=== PATIENT | male | born 1975 | race Hispanic/Latino ===

== ENCOUNTER 2020-01-03 17:06 | Emergency (ER) | payer OTHER ==
--- NOTE | 2020-01-03 22:25 | EDPHYS ---
Physician Documentation [facility] Name: Kit Whipple Age: 44 yrs Sex: Male : 1975 Arrival Date: 01/03/2020 Time: 17:24 Bed 28 Private MD: ED Physician Roldan Arecihga HPI: 01/02 22:28 This 44 yrs old Male presents to ER via Ambulatory with complaints of Back snw Pain, Leg Pain. 22:28 The patient presents with pain that is acute, with no known mechanism of injury. The snw symptoms are located in the low back. Onset: The symptoms/episode began/occurred gradually. Location: right buttock. Associated signs and symptoms: Pertinent positives: none Pertinent negatives: abdominal pain, dysuria, numbness. The problem was sustained from unknown cause. Modifying factors: The patient symptoms are alleviated by lying flat and standing. Severity of symptoms: At their worst the symptoms were moderate. The patient has experienced a previous episode, left sided. The patient has not recently seen a physician. 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 Historical: - Allergies: 17:55 No Known Allergies; em - PMHx: 17:55 Hyperlipidemia; Hypertension; Sleep Apnea; em - PSHx: 17:55 back surgery; left shoulder; em - Immunization history:: Adult Immunizations up to date. - Social history:: Smoking status: Patient denies any tobacco usage or history of. ROS: 22:25 Constitutional: Negative for fever, chills, and weight loss, Eyes: Negative for injury, snw pain, redness, and discharge, ENT: Negative for injury, pain, and discharge, Neck: Negative for injury, pain, and swelling, Cardiovascular: Negative for chest pain, palpitations, and edema, Respiratory: Negative for shortness of breath, cough, wheezing, and pleuritic chest pain, Abdomen/GI: Negative for abdominal pain, nausea, vomiting, diarrhea, and constipation, : Negative for injury, bleeding, discharge, and swelling, MS/Extremity: Negative for injury and deformity, Skin: Negative for injury, rash, and discoloration, Neuro: Negative for headache, weakness, numbness, tingling, and seizure, Psych: Negative for depression, anxiety, suicide ideation, homicidal ideation, and hallucinations. 22:25 Back: Positive for pain at rest, pain with movement, radiated pain, of the right buttock. Exam: 22:28 Constitutional: This is a well developed, well nourished patient who is awake, alert, snw and in no acute distress. Head/Face: Normocephalic, atraumatic. Eyes: Pupils equal round and reactive to light, extra-ocular motions intact. Lids and lashes normal. Conjunctiva and sclera are non-icteric and not injected. Cornea within normal limits. Periorbital areas with no swelling, redness, or edema. ENT: Nares patent. No nasal discharge, no septal abnormalities noted. Tympanic membranes are normal and external auditory canals are clear. Oropharynx with no redness, swelling, or masses, exudates, or evidence of obstruction, uvula midline. Mucous membranes moist. Neck: Trachea midline, no thyromegaly or masses palpated, and no cervical lymphadenopathy. Supple, full range of motion without nuchal rigidity, or vertebral point tenderness. No Meningismus. Chest/axilla: Normal chest wall appearance and motion. Nontender with no deformity. No lesions are appreciated. Cardiovascular: Regular rate and rhythm with a normal S1 and S2. No gallops, murmurs, or rubs. Normal PMI, no JVD. No pulse deficits. Respiratory: Lungs have equal breath sounds bilaterally, clear to auscultation and percussion. No rales, rhonchi or wheezes noted. No increased work of breathing, no retractions or nasal flaring. Abdomen/GI: Soft, non-tender, with normal bowel sounds. No distension or tympany. No guarding or rebound. No evidence of tenderness throughout. Back: No spinal tenderness. No costovertebral tenderness. Full range of motion. Skin: Warm, dry with normal turgor. Normal color with no rashes, no lesions, and no evidence of cellulitis. MS/ Extremity: Pulses equal, no cyanosis. Neurovascular intact. Full, normal range of motion. Neuro: Awake and alert, GCS 15, oriented to person, place, time, and situation. Cranial nerves II-XII grossly intact. Motor strength 5/5 in all extremities. Sensory grossly intact. Cerebellar exam normal. Normal gait. Psych: Awake, alert, with orientation to person, place and time. Behavior, mood, and affect are within normal limits. Vital Signs: 17:52 BP 147 / 95; Pulse 82; Resp 18; Temp 98.3; Pulse Ox 97% on R/A; Weight 127.01 kg; em Height 5 ft. 7 in. (170.18 cm); Pain 7/10; 20:30 BP 139 / 93; Pulse 77; Resp 16; Pulse Ox 99% on R/A; Pain 10/10; fu 21:30 BP 138 / 91; Pulse 74; Resp 18; Temp 98.2; Pulse Ox 97% on R/A; sg 22:15 BP 127 / 85; Pulse 73; Pulse Ox 97% on R/A; Pain 10/10; fu 17:52 Body Mass Index 43.85 (127.01 kg, 170.18 cm) em MDM: 22:23 Patient medically screened. snw 22:27 Data reviewed: vital signs, nurses notes. Data interpreted: Pulse oximetry: on room air snw is 97 %. Interpretation: normal. Counseling: I had a detailed discussion with the patient and/or guardian regarding: the historical points, exam findings, and any diagnostic results supporting the discharge/admit diagnosis, the need for outpatient follow up, to return to the emergency department if symptoms worsen or persist or if there are any questions or concerns that arise at home. Special discussion: I have referred the patient to see his PCP for further evaluation of high blood pressure. Based on the history and exam findings, there is no indication for further emergent testing or inpatient evaluation. I discussed with the patient/guardian the need to see the back specialist for further evaluation of the symptoms. I discussed with the patient/guardian the need to see the primary care provider for further evaluation of the symptoms. Administered Medications: 22:33 Drug: Pepcid 20 mg Route: PO; fu 22:41 Follow up: Response: Medication administered at discharge. fu 22:34 Drug: TORadol 30 mg Route: IM; Site: right ventrogluteal; fu 22:42 Follow up: Response: Medication administered at discharge. fu 22:34 Drug: Decadron 8 mg Route: PO; fu 22:42 Follow up: Response: Medication administered at discharge. fu Disposition: 01/03 05:59 Co-signature as Attending Physician, Roldan Arechiga MD. pkl Disposition: 01/03/20 22:24 Discharged to Home. Impression: Radiculopathy, lumbar region, Low back pain. - Condition is Stable. - Discharge Instructions: Back Pain, Adult, Lumbosacral Radiculopathy, Musculoskeletal Pain, Back Injury Prevention, [id number], Rehydration, Adult, Heat Therapy. - Prescriptions for Prednisone 20 mg Oral Tablet - take 2 tablet by ORAL route once daily for 5 days; 10 tablet. - Medication Reconciliation Form, Thank You Letter, Antibiotic Education, Prescription Opioid Use form. - Follow up: Emergency Department; When: As needed; Reason: Worsening of condition. Follow up: Private Physician; When: 2 - 3 days; Reason: Recheck today's complaints, Continuance of care, Re-evaluation by your physician. Signatures: Roldan Arechiga MD MD pkl Waters, Shelly, FNP-C PONY TRIMMER-Shaan White, Maikol Luna RN, RN RN fu Corrections: (The following items were deleted from the chart) 01/02 22:41 22:24 01/03/2020 22:24 Discharged to Home. Impression: Radiculopathy, lumbar region; fu Low back pain. Condition is Stable. Forms are Medication Reconciliation Form, Thank You Letter, Antibiotic Education, Prescription Opioid Use. Follow up: Emergency Department; When: As needed; Reason: Worsening of condition. Follow up: Private Physician; When: 2 - 3 days; Reason: Recheck today's complaints, Continuance of care, Re-evaluation by your physician. snw
--- NOTE | 2020-01-03 22:25 | ER ---
Nurse's Notes [facility] Name: Kit Whipple Age: 44 yrs Sex: Male : 1975 Arrival Date: 01/03/2020 Time: 17:24 Bed 28 Private MD: Diagnosis: Radiculopathy, lumbar region;Low back pain Presentation: 01/02 17:52 Chief complaint: Patient states: pain in the right buttock that radiates does into em right leg, has been there for about 2 weeks, hx of sciatica. Coronavirus screen: Client denies travel out of the [place] in the last 14 days. Ebola Screen: Patient negative for fever greater than or equal to 101.5 degrees Fahrenheit, and additional compatible Ebola Virus Disease symptoms Patient denies exposure to infectious person. Patient denies travel to an Ebola-affected area in the 21 days before illness onset. No symptoms or risks identified at this time. Initial Sepsis Screen: Does the patient meet any 2 criteria? No. Patient's initial sepsis screen is negative. Does the patient have a suspected source of infection? No. Patient's initial sepsis screen is negative. Risk Assessment: Do you want to hurt yourself or someone else? Patient reports no desire to harm self or others. Onset of symptoms was December 20, 2019. 17:52 Method Of Arrival: Ambulatory em 17:52 Acuity: MATI 4 em Historical: - Allergies: 17:55 No Known Allergies; em - PMHx: 17:55 Hyperlipidemia; Hypertension; Sleep Apnea; em - PSHx: 17:55 back surgery; left shoulder; em - Immunization history:: Adult Immunizations up to date. - Social history:: Smoking status: Patient denies any tobacco usage or history of. Screenin:45 Abuse screen: Denies threats or abuse. Nutritional screening: No deficits noted. fu Tuberculosis screening: No symptoms or risk factors identified. Fall Risk None identified. Assessment: 20:20 General: Appears uncomfortable, Behavior is calm, cooperative, appropriate for age. fu Pain: Complains of pain in right buttock Pain radiates to right leg Pain currently is 10 out of 10 on a pain scale. Quality of pain is described as sharp, Pain began 2 weeks ago, worst today Is intermittent. Neuro: Level of Consciousness is Oriented to Platform Consultant are Cardiovascular: Denies chest pain, nausea, vomiting. Respiratory: Airway is patent. GI: Patient currently denies abdominal pain, diarrhea, vomiting. EENT: No signs and/or symptoms were reported regarding the EENT system. Derm: No signs and/or symptoms reported regarding the dermatologic system. Musculoskeletal: Reports pain in right buttocks that radiates to right leg. 21:53 Reassessment: Patient appears in no apparent distress at this time. Patient and/or fu family updated on plan of care and expected duration. Pain level reassessed. Patient is alert, oriented x 3, equal unlabored respirations, skin warm/dry/pink. Vital Signs: 17:52 BP 147 / 95; Pulse 82; Resp 18; Temp 98.3; Pulse Ox 97% on R/A; Weight 127.01 kg; em Height 5 ft. 7 in. (170.18 cm); Pain 7/10; 20:30 BP 139 / 93; Pulse 77; Resp 16; Pulse Ox 99% on R/A; Pain 10/10; fu 21:30 BP 138 / 91; Pulse 74; Resp 18; Temp 98.2; Pulse Ox 97% on R/A; sg 22:15 BP 127 / 85; Pulse 73; Pulse Ox 97% on R/A; Pain 10/10; fu 17:52 Body Mass Index 43.85 (127.01 kg, 170.18 cm) em ED Course: 17:24 Patient arrived in ED. mr 17:54 Triage completed. em 17:55 Arm band placed on. em 20:27 Maikol Garcia, RN is Primary Nurse. fu 20:45 Patient has correct armband on for positive identification. Bed in low position. Call fu light in reach. 21:31 Diana Mc FNP-C is PHCP. snw 21:31 Roldan Arechiga MD is Attending Physician. snw 22:39 No provider procedures requiring assistance completed. Patient did not have IV access fu during this emergency room visit. Administered Medications: 22:33 Drug: Pepcid 20 mg Route: PO; fu 22:41 Follow up: Response: Medication administered at discharge. fu 22:34 Drug: TORadol 30 mg Route: IM; Site: right ventrogluteal; fu 22:42 Follow up: Response: Medication administered at discharge. fu 22:34 Drug: Decadron 8 mg Route: PO; fu 22:42 Follow up: Response: Medication administered at discharge. fu Outcome: 22:24 Discharge ordered by . snw 22:40 Discharged to home ambulatory. fu 22:40 Condition: good 22:40 Discharge instructions given to patient, Instructed on discharge instructions, Demonstrated understanding of instructions, medications, Prescriptions given X 1. 22:41 Patient left the ED. fu Signatures: Azam Matthews RN RN Diana Hand, ANDROID FRAMEWORK DEVELOPER-C ANDROID FRAMEWORK DEVELOPER-Csnw NiranjanMaggie Shaan Zapien RN RN em Umadhay, Felix, RN RN fu Corrections: (The following items were deleted from the chart) 22:23 21:30 BP 138 / 91; Pulse 74bpm; Resp 18bpm; Pulse Ox 97% RA; Temp 89.2F; fu sg
[2020-01-03] MEDS ORDERED: dexAMETHasone 4 MG TAB ONE (22:39)
[2020-01-03] MEDS ORDERED: KETOROLAC 30 MG/ML INJ ONE (22:39)
[2020-01-03] MEDS ORDERED: FAMOTIDINE 20 MG TAB ONE (22:40)
[2020-01-04 01:24] VITALS: BP 127/85; O2SAT 97
[2020-01-04 13:24] VITALS: TEMP 98.2
== END 2020-01-03 22:41 | disposition home or self-care (01) ==
LOC: ER 17:06
DX: M54.16 Radiculopathy, lumbar region (principal); I10 Essential (primary) hypertension
CPT/HCPCS: 96372; 99283; J8540

== ENCOUNTER 2022-07-02 08:51 | Emergency (ER) | payer OTHER ==
[2022-07-02] MEDS ORDERED: KETOROLAC 30 MG/ML INJ ONE (09:10)
--- NOTE | 2022-07-02 10:57 | RAD REPORT ---
EXAM DESCRIPTION: RAD - Knee Left 3 View - 07/02/2022 9:48 am CLINICAL HISTORY: Pain;Swelling COMPARISON: No comparisons TECHNIQUE: Left knee, 3 views. FINDINGS: No fracture, dislocation or periosteal reaction.A small joint effusion seen. No joint spac e narrowing. No soft tissue abnormality. Spurring along the superior patellar surface related to quad riceps enthesopathy. Clinical concerns for internal derangement or occult bony injury could be further assessed with MR im aging. IMPRESSION: No acute osseous abnormality. Small joint effusion.
--- NOTE | 2022-07-02 11:00 | ER ---
Nurse's Notes [facility] Name: Kit Whipple Age: 46 yrs Sex: Male : 1975 Arrival Date: 07/02/2022 Time: 08:54 Bed 17 [facility] MD: Gonzalo Antunez Diagnosis: Other bursitis of knee, left knee Presentation: 07/02 08:57 Chief complaint: Left knee pain and swelling x 1 week. Denies injury. Not able to bear hb weight today. Coronavirus screen: At this time, the client does not indicate any symptoms associated with coronavirus-19. Ebola Screen: No symptoms or risks identified at this time. Risk Assessment: Do you want to hurt yourself or someone else? Patient reports no desire to harm self or others. Onset of symptoms was June 25, 2022. 08:57 Method Of Arrival: Wheelchair hb 08:59 Initial Sepsis Screen: Does the patient meet any 2 criteria? No. Patient's initial hb sepsis screen is negative. Does the patient have a suspected source of infection? No. Patient's initial sepsis screen is negative. 08:59 Acuity: MATI 4 hb Triage Assessment: 08:58 General: Appears in no apparent distress. Behavior is calm, cooperative. Pain: Pain hb currently is 10 out of 10 on a pain scale. Neuro: Level of Consciousness is awake, alert, obeys commands, Oriented to person, place, time, situation. Cardiovascular: Patient's skin is warm and dry. Respiratory: Respiratory effort is even, unlabored, Respiratory pattern is regular, symmetrical. Musculoskeletal: Reports severe left knee pain. Historical: - Allergies: 08:58 No Known Allergies; hb - PMHx: 08:58 Hyperlipidemia; Hypertension; Sleep Apnea; hb - Immunization history:: Adult Immunizations up to date. - Social history:: Smoking status: Patient denies any tobacco usage or history of. Screenin:00 [facility] ED Fall Risk Assessment (Adult) History of falling in the last 3 months, kc6 including since admission No falls in past 3 months (0 pts) Confusion or Disorientation No (0 pts) Intoxicated or Sedated No (0 pts) Impaired Gait No (0 pts) Mobility Assist Device Used No (0 pt) Altered Elimination No (0 pt) Score/Fall Risk Level 0 - 2 = Low Risk Oriented to surroundings, Maintained a safe environment, Educated pt \T\ family on fall prevention, incl call for assistance when getting out of bed, Assessed \T\ reinforced patient's understanding of fall precautions, Hourly rounding (assess needs \T\ fall precautionary measures) done. Abuse screen: Denies threats or abuse. Denies injuries from another. Nutritional screening: No deficits noted. Tuberculosis screening: No symptoms or risk factors identified. Assessment: 09:00 General: Appears in no apparent distress. comfortable, Behavior is calm, cooperative, kc6 appropriate for age. Pain: Complains of pain in left knee Pain does not radiate. Pain currently is 10 out of 10 on a pain scale. Quality of pain is described as aching, dull, Is continuous, Alleviated by rest, Aggravated by weight bearing, Noted to be resistant to movement, Also complains of no other associated symptoms. Neuro: Level of Consciousness is awake, alert, obeys commands, Oriented to person, place, time, situation, Appropriate for age. Cardiovascular: Capillary refill < 3 seconds. Respiratory: Airway is patent Trachea midline Respiratory effort is even, unlabored, Respiratory pattern is regular, symmetrical. GI: No signs and/or symptoms were reported involving the gastrointestinal system. : No signs and/or symptoms were reported regarding the genitourinary system. EENT: No signs and/or symptoms were reported regarding the EENT system. Derm: No signs and/or symptoms reported regarding the dermatologic system. Skin is intact, Skin is pink, warm \T\ dry. Musculoskeletal: Circulation, motion, and sensation intact. Capillary refill < 3 seconds, Range of motion: limited in left knee. 10:00 Reassessment: Patient appears in no apparent distress at this time. No changes from kc6 previously documented assessment. Patient and/or family updated on plan of care and expected duration. Pain level reassessed. Patient is alert, oriented x 3, equal unlabored respirations, skin warm/dry/pink. Patient states feeling better. Vital Signs: 08:57 BP 142 / 76; Pulse 76; Resp 18; Temp 97.8; Pulse Ox 100% on R/A; Weight 129.27 kg; hb Height 5 ft. 8 in. ; Pain 10/10; 10:37 BP 120 / 68; Pulse 81; Resp 18 S; Pulse Ox 99% on R/A; kc6 08:57 Body Mass Index 43.33 (129.27 kg, 172.72 cm) hb 08:57 Pain Scale: Adult hb ED Course: 08:54 Patient arrived in ED. mr 08:54 Gonzalo Antunez MD is Private Physician. mr 08:55 [facility] emergency [facility] 08:55 Damon Collins MD is Attending Physician. 7 08:56 Damon Collins MD is Attending Physician. 7 08:58 Arm band placed on left wrist. hb 09:00 Triage completed. hb 09:00 Patient has correct armband on for positive identification. Bed in low position. Call kc6 light in reach. Side rails up X2. Adult w/ patient. 09:03 Rachael Echeverria, RN is Primary Nurse. 6 09:49 XRAY Knee LEFT 3 view In Process Unspecified. EDMS 11:00 Gonzalo Antunez MD is Referral Physician. [facility] emergency room Administered Medications: 09:11 Drug: Ketorolac IM 60 mg Route: IM; Site: left deltoid; kc6 09:48 Follow up: Response: No adverse reaction; Pain is decreased kc6 Outcome: 11:00 Discharge ordered by . jhTara Signatures: Dispatcher [employer] EDNJ Maggie Ureña mr StillNevin RN KARYN Lesley Cardoso FNP [place] [id number] Rachael Echeverria RN RN kc
--- NOTE | 2022-07-02 11:00 | EDPHYS ---
Physician Documentation [facility] Name: Kit Whipple Age: 46 yrs Sex: Male : 1975 Arrival Date: 07/02/2022 Time: 08:54 Bed 17 Private MD: Gonzalo Antunez ED Physician Damon Collins HPI: 07/02 09:01 This 46 yrs old Male presents to ER via Wheelchair with complaints of Knee jh7 swelling/pain. 09:01 Onset: The symptoms/episode began/occurred 1 week(s) ago. Associated signs and jh7 symptoms: Pertinent negatives: fever. 46-year-old male presents with left knee swelling and pain progressing over the past week. He denies any injury, warmth to the area, redness, or fever. He has a history of hypertension and diabetes. States that he has been walking a lot due to his work and that the pain became gradual or now he is having difficulty bearing weight. States that at rest he experiences no pain but has difficulty bearing weight and demonstrating full extension.. Historical: - Allergies: 08:58 No Known Allergies; hb - PMHx: 08:58 Hyperlipidemia; Hypertension; Sleep Apnea; hb - Immunization history:: Adult Immunizations up to date. - Social history:: Smoking status: Patient denies any tobacco usage or history of. ROS: 09:01 Constitutional: Negative for fever, chills, and weight loss, Eyes: Negative for injury, jh7 pain, redness, and discharge, Neck: Negative for injury, pain, and swelling, Cardiovascular: Negative for chest pain, palpitations, and edema, Respiratory: Negative for shortness of breath, cough, wheezing, and pleuritic chest pain, Back: Negative for injury and pain, Skin: Negative for injury, rash, and discoloration, Neuro: Negative for headache, weakness, numbness, tingling, and seizure. 09:01 MS/extremity: Positive for pain, swelling, Negative for injury or acute deformity, decreased range of motion, erythema, tenderness, warmth. 09:01 All other systems are negative. Exam: 09:01 Constitutional: This is a well developed, well nourished patient who is awake, alert, jh7 and in no acute distress. Head/Face: Normocephalic, atraumatic. Eyes: Pupils equal round and reactive to light, extra-ocular motions intact. Lids and lashes normal. Conjunctiva and sclera are non-icteric and not injected. Cornea within normal limits. Periorbital areas with no swelling, redness, or edema. Neck: Trachea midline, no thyromegaly or masses palpated, and no cervical lymphadenopathy. Supple, full range of motion without nuchal rigidity, or vertebral point tenderness. No Meningismus. Cardiovascular: Regular rate and rhythm with a normal S1 and S2. No gallops, murmurs, or rubs. Normal PMI, no JVD. No pulse deficits. Respiratory: Lungs have equal breath sounds bilaterally, clear to auscultation and percussion. No rales, rhonchi or wheezes noted. No increased work of breathing, no retractions or nasal flaring. Back: No spinal tenderness. No costovertebral tenderness. Full range of motion. Skin: Warm, dry with normal turgor. Normal color with no rashes, no lesions, and no evidence of cellulitis. Neuro: Awake and alert, GCS 15, oriented to person, place, time, and situation. Motor strength 5/5 in all extremities. Sensory grossly intact. Antalgic gait, not bearing weight on LLE. 09:01 Musculoskeletal/extremity: ROM: full active range of motion, pain elicited with full extension of the L knee, Circulation is intact in all extremities. Sensation intact. Mild diffuse swelling noted of the left knee with no tenderness to palpation, erythema, warmth, or any other abnormalities. Patient reports he is unable to bear weight secondary to pain.. Vital Signs: 08:57 BP 142 / 76; Pulse 76; Resp 18; Temp 97.8; Pulse Ox 100% on R/A; Weight 129.27 kg; hb Height 5 ft. 8 in. ; Pain 10/10; 10:37 BP 120 / 68; Pulse 81; Resp 18 S; Pulse Ox 99% on R/A; kc6 08:57 Body Mass Index 43.33 (129.27 kg, 172.72 cm) hb 08:57 Pain Scale: Adult hb MDM: 09:00 Patient medically screened. [facility] 10:11 Medication response: Toradol markedly relieved the patient's pain. [facility] 07/02 09:00 Order name: XRAY Knee LEFT 3 view; Complete Time: 10:59 [facility] 07/02 11:00 Order name: Sammy wrap-joint jh7 Administered Medications: 09:11 Drug: Ketorolac IM 60 mg Route: IM; Site: left deltoid; kc6 09:48 Follow up: Response: No adverse reaction; Pain is decreased kc6 Disposition Summary: 07/02/22 11:00 Discharge Ordered Location: Home [facility] Problem: new [facility] Symptoms: have improved [facility] Condition: Stable [facility] Diagnosis - Other bursitis of knee, left knee [facility] Followup: [facility] - With: Gonzalo Antunez MD - When: 2 - 3 days - Reason: Recheck today's complaints Forms: - Medication Reconciliation Form [facility] - Thank You Letter 7 - Antibiotic Education [facility] - Prescription Opioid Use [facility] Signatures: Dispatcher [employer] Nevin Morton, RN RN Lesley Cardoso, TREATING AND PUMPING SUPERVISOR TREATING AND PUMPING SUPERVISOR 7 Rachael Echeverria RN RN kc6
[2022-07-02 12:03] VITALS: TEMP 97.8
[2022-07-02 12:04] VITALS: BP 120/68; O2SAT 99
== END 2022-07-02 11:18 | disposition home or self-care (01) ==
LOC: ER 08:51
DX: M71.562 Other bursitis, not elsewhere classified, left knee (principal)
CPT/HCPCS: 96372; 99283